=== PATIENT | male | born 1970 | race Caucasian/White ===

== ENCOUNTER 2023-07-20 09:51 | Outpatient (OUT) | payer OTHER, SELFPAY ==
[2023-07-20 10:03] LABS: Basophils Percent Auto 0.3 % (0.2-2.0); Eosinophils Absolute Auto 0.3 10^3/uL (0.0-0.7); Eosinophils Percent Auto 5.1 % (0.9-7.0); Hematocrit 45.8 % (42.0-54.0); Hemoglobin 15.6 g/dL (14.0-18.0); Immature Granulocytes Abs Auto 0.02 10^3/uL (0.00-0.03); Immature Granulocytes Pct Auto 0.3 % (0.0-0.5); Lymphocytes Absolute Auto 1.8 10^3/uL (1.2-3.8); Lymphocytes Percent Auto 31.2 % (20.5-60.0); Mean Corpuscular HGB Conc 34.1 g/dL (29.9-35.2); Mean Corpuscular Hemoglobin 30.2 pg (25.9-34.0); Mean Corpuscular Volume 88.8 fL (80.0-94.0); Mean Platelet Volume 9.5 fL (9.5-13.5); Monocytes Absolute Auto 0.5 10^3/uL (0.3-0.8); Monocytes Percent Auto 8.7 % (1.7-12.0); Neutrophils Absolute Auto 3.2 10^3/uL (1.4-6.5); Neutrophils Percent Auto 54.4 % (43.0-75.0); Platelet Count 219 10^3/uL (150-450); Red Blood Count 5.16 10^6/uL (4.70-6.10); Red Cell Distribution Width 12.3 % (11.0-15.0); White Blood Count 5.8 10^3/uL (4.0-11.0)
[2023-07-20 10:34] LABS: Alanine Aminotransferase 46 U/L (16-63); Albumin Globulin Ratio 1.2; Albumin Level 4.2 g/dL (3.4-5.0); Alkaline Phosphatase 77 U/L (46-116); Anion Gap 11.2; Aspartate Amino Transferase 23 U/L (15-37); BUN Creatinine Ratio 13.6; Bilirubin Total 0.7 mg/dL (0.2-1.0); Calcium 9.4 mg/dL (8.5-10.1); Carbon Dioxide 28.2 mmol/L (21.0-32.0); Chloride 102 mmol/L (98-107); Chol HDL Ratio 2.7; Cholesterol 197 mg/dL (<=200); Estimated GFR (African America >60 (>=60); Estimated GFR (Non-African Ame >60 (>=60); Globulin 3.6 g/dL; Glucose 91 mg/dL (74-106); HDL Cholesterol 73 mg/dL (40-60); Potassium 4.4 mmol/L (3.5-5.1); Sodium 137 mmol/L (136-145); Total Protein 7.8 g/dL (6.4-8.2); Triglycerides 100 mg/dL (<=150)
[2023-07-20 11:14] LABS: Prostate Specific Antigen Scrn 1.92 ng/mL (<=4.00)
== END 2023-07-20 09:52 | disposition home or self-care (01) ==
LOC: LAB 07-26 09:52
PROVIDERS: PCP Internal Medicine; Visit Provider Internal Medicine
DX: Z00.00 Encounter for general adult medical examination without abnormal findings (principal); Z12.5 Encounter for screening for malignant neoplasm of prostate
CPT/HCPCS: 36415; 80053; 80061; 85025; G0103

== ENCOUNTER 2025-09-17 09:25 | Outpatient (OUT) | payer OTHER, SELFPAY ==
--- OUTSIDE RECORDS SUMMARY | 2025-09-17 05:20 | XMS_ITS | Continuity of Care Document ---
Author Organization [facility] Address [address] [place] [address] Phone Care Team Providers Care Drapery Operator Name Role Phone Homero Jeff DO Primary Care Provider Homero Jeff DO Attending Provider [phone] Care Teams Patient Care Team Team Status: Active Member Role/Relationship Status Dates Homero Jeff DO Primary Care Provider Active Patient Care Team Team Status: Inactive Member Role/Relationship Status Dates Homero Jeff DO Primary Care Provider Active Start: September 17, 2025 End: September 17enjafrancisco Jeff DOAttending ProviderActiveStart: September 17, 2025 End: September 17, 2025 Chief Complaint and Reason for Visit Chief Complaint Admit Date Wellness September 17, 2025 8 :48am Reason for Visit Admit Date Adenomatous colon polyp September 17 8:48am Hypertension September 17, 2025 8 :48am Obesity September 17, 2025 8 :48am Screening PSA (prostate specific antigen ) September 17, 2025 8:48am Wellness examination September 17, 2025 8:48am Allergies, Adverse Reactions, Alerts Allergen Type Severity Reaction Last Updated Verified Status No Known Allergies Allergy Unknown September 17, 2025 8:57amYesActive Social History Smoking Status Status Start Date End Date Date of Observa tion Never smoked tobacco (finding) March 04, 2024 7:59am Observation Status Observation Response Date of Response Legal Sex Male (finding) Sex Assigned At BirthMaleMa1969 Family History Relationship Condition Age at Onset Recorded Date/T kel father Malignant neoplasm Unknown motherHypertensionUnknownDiabetes mellitusUnknown Problems Active Problems Problem Diagnosis/Recorded Date Onset Date Stat us Screening PSA (prostate spec ific antigen) August 30, 2024 8:29am Unknown Active Family hx of colon cancer February 08, 2024 3:12pm Unkn own Active Wellness examination August 30, 2024 8:28am Unknown Active Adenomatous colon polyp March 02, 2024 9:20pm Unknow n Active Hypertension February 08, 2024 3:11pm Unknown Acti ve Obesity September 11, 2024 10:23am Unknown A ctive Medications Medication Status Dose Units Route Directions Qty Days Refills S tart Date Stop Date End Date Reason(s) Instructions Adherence Amlodipine 5 mg tablet Discontinued 5 MG PO Daily 90 90 1 January 29, 2024 6:10pm September 11, 2024 10:17amBenazepril 40 mg srqutfKdadrfwxaszh37OERUNwblf22924 October 07, 2024 7:10pmMarch 2024 8:54pmBenazepril 40 mg tablet Nstuuotskwkj70RJCCUedrs56362Jsemt 2024 8:53pmJune 2024 11:04am Amlodipine 5 mg shrtbhKdkush5ZRLTJritp24762Wywu 2024 4:45pmComplies with drug therapyBenazepril 40 mg ckmlzmVagfkx63KMBMCiwhz22393Fwgw 2024 11:04am Complies with drug therapyBenazepril 40 mg hngauxCyeqkepghwxy63YISMYycpkLjyoq 2023 1:00amMarch 2023 2:06pmAmlodipine 5 mg bszjucHvznblzxsocd6MANEY DailyMar 2023 1:00amMarch 2023 6:11pmFreeTextSi tablet Orally Once a day; Note: Source Status: Refill; Refills: 3; Qty: 90 Tablet; Provider: Tomer Valentin EBenazepril 40 mg xqctkmRjpgzjoezprw94SILWVqwji88839Yfvzb 2023 2:05pmNovember 2023 7:10pmAmlodipine 5 mg qkudjwVsvdesvvkapc7NWAD Zjdtd20248Jhefagv 2023 10:14amOctober 2023 10:24amAmlodipine 5 mg ceqokxSymuxuwdhkkz3UPJRVrvyj74224Ralbgkb 2023 10:24amJune 2024 4:46pm Immunizations Immunization Event Date Not Given Reason Dose Number Superintendent Compressor Stations Lot Number Reason(s) Given Vaccine Information Statement (VIS) Detail Administration Location DTap, unspecified April 07, 2021 Vital Signs Vital Reading Result Reference Range Collection Date/Time Height 70 [in_i] September 17, 2025 [facility] 8:49amBody Fdvflbcktnl17.3 [degF]97.6-99.0[facility] 2024 8:49amHeart Rate77 /cds59-851 September 17, 2025 8:49amRespiratory rate12 /lsg59-36Tqzrwqh 2024 8:49am Oxygen saturation by Pulse lyeqxhlc07 %95-100[facility] 2024 8:49amBP Lxthimvj618 mm[Hg]100-140[facility] 2024 8:49amBP Uuqlebyga46 mm[Hg]60-100 September 17, 2025 8:49amBMI (Body Mass Index)33.7 kg/w5Mfzqabg 2024 8:49am Advance Directives Advance Directive Response Recorded Date/ Time Advance Directives No February 11 024 2:30pm Insurance Providers Guarantor Allan Schmidt Address [address] [place] [address] on Line [facility] [id number] Info.Home Phone: Payer Group Member ID Coverage Type Subscriber Relationship to Subscriber Effective Date Expiration Date [facility] Id: [id number] [facility]: [id number] [facility] [address] [facility] [address] Home Phone: self Encounters Encounter Location(s) Arrival/Admit Date Discharge/Departure Date Discharge/Departure Disposition Provider(s) Departed Physician/ Provider Office Visit -[facility] September 17, 2025 8:48am September 17, 2025 9:19am Discharged to home care or self care (routine discharge) Homero Jeff DO Recent Diagnosis Onset Date Admit Date Adenomatous colon polyp Unknown September 17, 2025 8:48am Hypertension Unknown September 17 8:48am Obesity Unknown September 17 8:48am Screening PSA (prostate specific antigen) Unknow n September 17, 2025 8:48am Wellness examination Unknown August t2024 8:48am Assessments Diagnosis Onset Date Resolution Status Admit Date Adenomatous colon polyp acuteOctober 2024 8:48amHypertensionacuteOctober 2024 8:48amObesity acuteOctober 2024 8:48amScreening PSA (prostate specific antigen)acute September 17, 2025 8:48amWellness examinationacuteOctober 2024 8:48am Plan of Treatment Author Homero Jeff [facility]Authored[facility] 6:51amI have instructed this patient on the recommended lifestyle changes, which includes a low fat, high fiber diet along with a regular exercise routine. I have also reviewed the recommended age-appropriate preventive testing for this patient. I have also reviewed the recommended vaccines for their age and risk factors. I have instructed this patient to consume a healthy, low-fat, low-salt diet. I have also encouraged them to continue exercise with weight loss to achieve/maintain a BMI < 30. I have instructed this patient on the correct procedure for obtaining home BP measurements:? - rest for 5 minutes w/o talking. - positioned w/ feet on floor and arms supported. - average best 2/3 readings w/ goal < 135/85. - update office w/ home readings in 2 weeks. Continue Amlodipine and Benazepril without interruption This is an asymptomatic, moderate risk patient, who is UTD w/ screening colonoscopy. There has been no change in appetite, weight or bowel habits. There is no history of abdominal pain, heartburn, dysphagia, melena or hematochezia. I have instructed this patient on a low-fat, high-fiber diet.?? I have also instructed them to reduce calories, portions sizes, sweet drinks and snacks.?? I have also recommended they exercise for 30 minutes, 3-5 times weekly. They are aware of the comorbid conditions associated with excessive weight: Diabetes, HTN, Hyperlipidemia, CAD and arthritis. I have recommended yearly PSA testing. I have informed him that the PSA can be elevated w/ cancer, infection and enlarged prostates. I have explained to the patient, that If his PSA is elevated, while there are many causes, referral will be recommended to r/o cancer. He would be referred to Urology, who may recommend an MRI, TRUS/bx or possibly continued monitoring. He is agreeable to this plan of action Future Tests Future scheduled test information is unavailable Pending Tests Test Name Ordered Date Scheduled Date Comprehensive Metabolic Panel September 17, 2025 9:16am Future Visits Future appointment information is unavailable Future Procedures Procedure Name Ordered Date Scheduled Date Complete Blood Count Auto Diff September 17 9:16am Lipid PanelOct2024 9:16amPSA Screen (Yearly Only)September 17, 2025 9:16am Future Medications Future medication information is unavailable Patient Instructions Patient instructions are unavailable
[2025-09-17 09:42] LABS: Hematocrit 44.7 % (42.0-54.0); Hemoglobin 15.1 g/dL (14.0-18.0); Immature Granulocytes Abs Auto 0.02 10^3/uL (0.00-0.03); Immature Granulocytes Pct Auto 0.4 % (0.0-0.5); Lymphocytes Absolute Auto 1.5 10^3/uL (1.2-3.8); Mean Corpuscular HGB Conc 33.8 g/dL (29.9-35.2); Mean Corpuscular Hemoglobin 31.1 pg (25.9-34.0); Mean Corpuscular Volume 92.0 fL (80.0-94.0); Platelet Count 213 10^3/uL (150-450); Red Blood Count 4.86 10^6/uL (4.70-6.10); White Blood Count 5.0 10^3/uL (4.0-11.0)
[2025-09-17 10:29] LABS: Alanine Aminotransferase 42 U/L (16-63); Albumin Globulin Ratio 1.2; Albumin Level 4.0 g/dL (3.4-5.0); Alkaline Phosphatase 68 U/L (46-116); Anion Gap 14.4; Aspartate Amino Transferase 24 U/L (15-37); Blood Urea Nitrogen 8.0 mg/dL (7.0-18.0); Calcium 9.1 mg/dL (8.5-10.1); Carbon Dioxide 26.1 mmol/L (21.0-32.0); Chloride 102 mmol/L (98-107); Cholesterol 197 mg/dL (<=200); Estimated GFR (African America >60 (>=60 mL/min/1.73m^2); Estimated GFR (Non-African Ame >60 (>=60 mL/min/1.73m^2); Globulin 3.3 g/dL; Glucose 94 mg/dL (74-106); HDL Cholesterol 83 mg/dL (40-60); Potassium 4.5 mmol/L (3.5-5.1); Sodium 138 mmol/L (136-145); Total Protein 7.3 g/dL (6.4-8.2); Triglycerides 149 mg/dL (<=150); VLDL CHOLESTEROL 29.8 mg/dL
== END 2025-09-17 09:26 | disposition home or self-care (01) ==
PROVIDERS: PCP Internal Medicine; Visit Provider Internal Medicine
DX: Z00.00 Encounter for general adult medical examination without abnormal findings (principal); Z12.5 Encounter for screening for malignant neoplasm of prostate
CPT/HCPCS: 36415; 80053; 80061; 85025; G0103